=== PATIENT | female | born 1965 | race Caucasian/White ===

== ENCOUNTER 2020-09-23 11:59 | Outpatient (RCR) | payer BC, SELFPAY ==
[2020-09-23] MEDS: COVID-19 VACC, MRNA(PFIZER)/PF 30 MCG/0.3 ML SYRINGE IM (10:54)
[2020-10-14] MEDS: COVID-19 VACC, MRNA(PFIZER)/PF 30 MCG/0.3 ML SYRINGE IM (10:48)
== END 2020-09-23 23:59 ==
LOC: IMMUN 11:59
PROVIDERS: Visit Provider Family Medicine
DX: Z23 Encounter for immunization (principal)
CPT/HCPCS: 0001A; 0002A; 91300